=== PATIENT | male | born 1940 | race Caucasian/White ===

== ENCOUNTER 2023-10-04 01:04 | Observation (INO) | payer MEDICARE, SELFPAY ==
[2023-10-03] VITALS (7 sets, daily range): BP systolic 115–126; BP diastolic 60–81; BMI 26.1
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
[2023-10-03 16:53] LABS: % Basophils 0.4 % (0-2); % Eosinophils 3.3 % (0-6); % Immature Granulocytes 0.1 % (0-0.5); % Lymphocytes 16.7 % (20.5-51.1); % Monocytes 8.2 % (1.7-9.3); % Neutrophils 71.3 % (42.2-75.2); Absolute Eosinophils 0.2 10^3/uL (0-0.7); Absolute Lymphocytes 1.2 10^3/uL (1.2-3.4); Absolute Monocytes 0.6 10^3/uL (0.1-0.6); Absolute Neutrophils 5.1 10^3/uL (1.4-6.5); Hematocrit 32.2 % (39.0-52.0); Hemoglobin 11.3 g/dL (13.0-18.0); Mean Corp Hgb Conc. 35.1 g/dL (33.0-37.0); Mean Corpuscular Volume 94.2 fL (80.0-94.0); Mean Platelet Volume 9.8 fL (7.4-10.4); Nucleated Red Blood Cells % 0 % (-); Platelet Count 134 10^3/uL (130-400); Red Blood Cell Count 3.42 10^6/uL (4.70-6.10); White Blood Cell Count 7.2 10^3/uL (4.8-10.8)
[2023-10-03 17:07] LABS: ALT (SGPT) 29 U/L (0-50); AST (SGOT) 27 U/L (17-59); Albumin 3.8 g/dl (3.5-5.0); Alkaline Phosphatase 86 U/L (38-126); Blood Urea Nitrogen 40 mg/dl (9-20); Calcium 8.5 mg/dl (8.4-10.2); Carbon Dioxide 17 mmol/L (22-30); Chloride 113 mmol/L (98-107); Estimated Creatinine Clearance 46 ml/min; Glucose 115 mg/dl (70-99); Potassium 4.8 mmol/L (3.5-5.1); Sodium 139 mmol/L (135-145); Total Bilirubin 1.7 mg/dl (0.2-1.3); Total Protein 6.3 g/dl (6.3-8.2); eGFR 54.51
[2023-10-03 17:16] LABS: Troponin I 0.034 ng/ml
[2023-10-03] MEDS: NSS 500 IV (18:27)
[2023-10-03 20:53] LABS: Troponin I 0.046 ng/ml
[2023-10-03 23:29] LABS: Troponin I 0.052 ng/ml
[2023-10-04] VITALS (11 sets, daily range): BP systolic 101–140; BP diastolic 53–75; PULSE 70–76; BMI 25.8
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
[2023-10-04] MEDS: NSS 1000 IV ×2 (03:16→14:22)
[2023-10-04] MEDS: SYNTHROID 50 MCG PO (06:15)
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
[2023-10-04 07:12] LABS: Hematocrit 32.3 % (39.0-52.0); Hemoglobin 10.7 g/dL (13.0-18.0); Mean Corp Hgb Conc. 33.1 g/dL (33.0-37.0); Mean Corpuscular Hgb 32.7 pg (27.0-31.0); Mean Corpuscular Volume 98.8 fL (80.0-94.0); Mean Platelet Volume 10.2 fL (7.4-10.4); Platelet Count 121 10^3/uL (130-400); Red Blood Cell Count 3.27 10^6/uL (4.70-6.10); Red Cell Dist. Width 14.8 % (11.5-14.5); White Blood Cell Count 7.9 10^3/uL (4.8-10.8)
[2023-10-04 07:35] LABS: Blood Urea Nitrogen 35 mg/dl (9-20); Calcium 8.3 mg/dl (8.4-10.2); Carbon Dioxide 20 mmol/L (22-30); Chloride 112 mmol/L (98-107); Estimated Creatinine Clearance 46 ml/min; Glucose 105 mg/dl (70-99); Sodium 139 mmol/L (135-145); Troponin I 0.054 ng/ml; eGFR 54.51
[2023-10-04 07:43] LABS: Potassium 4.1 mmol/L (3.5-5.1)
[2023-10-04] MEDS: BETAPACE 80 MG PO ×2 (09:13→21:45)
[2023-10-04] MEDS: PEPCID 40 MG PO (09:13)
[2023-10-04] MEDS: QUESTRAN 4 GRAM PO ×3 (09:54→21:45)
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
--- NOTE | 2023-10-04 13:34 | PTCARENOTE ---
Troponin levels at 0613 0.054. Troponin level at 1220 0.060. Due for repeat level at 1815. Denies chest pain or other cardiac symptoms.
[2023-10-04 18:51] LABS: Troponin I 0.065 ng/ml
[2023-10-04] MEDS: VITAMIN D3 (cholecalciferol) 25 MCG PO (21:45)
[2023-10-04] MEDS: COZAAR 25 MG PO (21:45)
[2023-10-04] MEDS: ASPIR LOW (ENTERIC COATED) 81 MG PO (21:45)
[2023-10-04] MEDS: ZYLOPRIM 300 MG PO (21:45)
[2023-10-05 03:28] VITALS: BP 135/66
[2023-10-05] MEDS: SYNTHROID 50 MCG PO (05:52)
[2023-10-05 06:00] VITALS: BMI 26.5
[2023-10-05 07:20] VITALS: BP 121/61
[2023-10-05 08:09] LABS: Troponin I 0.061 ng/ml
[2023-10-05] MEDS: BETAPACE 80 MG PO (08:35)
[2023-10-05] MEDS: PEPCID 20 MG PO (08:35)
[2023-10-05] MEDS: QUESTRAN 4 GRAM PO (10:31)
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
--- NOTE | 2023-10-05 11:36 | PTCARENOTE ---
Discharge instructions reviewed with daughter and patient. Both verbalize understanding teaching and denies questions at this time. Peripheral IV and telemetry removed. Patient left via wheelchair with staff escort.
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
== END 2023-10-05 11:40 | disposition home or self-care (01) ==
LOC: 4 EAST ACU 01:04
PROVIDERS: Physician Assistant; Registered Nurse; ADMITTING PHYSICIAN Hospitalist; ATTENDING PHYSICIAN Hospitalist; CONSULT PHYSICIAN Internal Medicine Cardiovascular Disease; EMERGENCY PHYSICIAN Emergency Medicine; FAMILY PHYSICIAN Internal Medicine
DX: R07.89 Other chest pain (principal); M25.551 Pain in right hip; S80.12XA Contusion of left lower leg, initial encounter; S80.11XA Contusion of right lower leg, initial encounter; V49.49XA Driver injured in collision with other motor vehicles in traffic accident, initial encounter; Y93.89 Activity, other specified; Y92.414 Local residential or business street as the place of occurrence of the external cause; M16.11 Unilateral primary osteoarthritis, right hip; M17.11 Unilateral primary osteoarthritis, right knee; M17.12 Unilateral primary osteoarthritis, left knee; M19.071 Primary osteoarthritis, right ankle and foot; I48.0 Paroxysmal atrial fibrillation; M51.36 Other intervertebral disc degeneration, lumbar region; I25.10 Atherosclerotic heart disease of native coronary artery without angina pectoris; N18.30 Chronic kidney disease, stage 3 unspecified; K50.90 Crohn's disease, unspecified, without complications; J98.11 Atelectasis; M65.28 Calcific tendinitis, other site; M10.9 Gout, unspecified; Z95.1 Presence of aortocoronary bypass graft; Z86.79 Personal history of other diseases of the circulatory system; Z85.048 Personal history of other malignant neoplasm of rectum, rectosigmoid junction, and anus; Z92.21 Personal history of antineoplastic chemotherapy; Z92.3 Personal history of irradiation; Z85.810 Personal history of malignant neoplasm of tongue; Z95.5 Presence of coronary angioplasty implant and graft; Z90.49 Acquired absence of other specified parts of digestive tract; Z98.1 Arthrodesis status; Z88.6 Allergy status to analgesic agent; Z88.5 Allergy status to narcotic agent; Z88.8 Allergy status to other drugs, medicaments and biological substances; Z79.890 Hormone replacement therapy; Z79.82 Long term (current) use of aspirin; Z95.0 Presence of cardiac pacemaker
CPT/HCPCS: 71046; 71260; 73502; 73590; 80048; 80053; 84484; 85025; 85027; 93005; 94660; 97161; 99285; G0378; Q9967

== ENCOUNTER 2023-11-02 12:56 | Day surgery (SDC) | payer MEDICARE, OTHER, SELFPAY ==
[2023-11-02] VITALS (13 sets, daily range): BP systolic 117–137; BP diastolic 57–82; BMI 25.4
--- NOTE | 2023-11-02 17:13 | ITS.CL.CATH ---
C[facility] - Catheterization
Cardiac Catheterization
Procedure Report:
CARDIAC CATHETERIZATION REPORT
Date of Procedure: 11/02/2023
Referring: Eloi Tirado MD
Indication: Progressive angina in a patient with known severe CAD
�
HEMODYNAMIC DATA
AO: 118/53
LV: Not done
�
LEFT VENTRICULOGRAPHY: Not done
�
CORONARY ANGIOGRAPHY
Dominance: Right
Left Main: 40% distal stenosis at the bifurcation which has clear angiographic improvement compared to the prior study from 01/17/2022
LAD: The LAD has 80% mid stenosis distal to the small second diagonal branch and the distal LAD fills antegrade and via a patent ROMY graft. There is 30% stenosis distal to the ROMY graft touchdown site and this lesion also appears angiographically
less severe than on the prior study. The large first diagonal branch has trivial luminal irregularities
Circumflex: The circumflex has 70-80% proximal stenosis just past the takeoff of the tiny OM1. OM 2 fills antegrade and via a patent vein graft. There is only mild disease distal to the touchdown site of the OM 2 vein graft.
RCA: Widely patent ostial/proximal stents with 50% stenosis in the proximal RCA distal to the stented segment. This lesion has progressed mildly compared with the December 2021 study. There are widely patent stents in the mid and distal LAD. There
is a stent in the distal LAD spanning the takeoff of the PDA. PDA had a 60% ostial stenosis. The RCA continues in the AV groove to supply a tiny RPL 1, a very large RPL 2 and a small terminal RPL 3 which has 80% proximal stenosis similar to its
appearance on the prior study
Bypass grafts:
1. The left internal mammary graft to the LAD is widely patent with excellent runoff
2. The saphenous vein graft to OM 2 is patent with mild luminal irregularities with good runoff into the OM 2 target
FloWire assessment: We opted to evaluate the proximal RCA lesion with FloWire. Heparin was used for anticoagulation. A 6 [place] AR-1 guide catheter was used. A Izzui wire was passed into the mid RCA. iFR measurements were 0.96, 0.94, and 0.95.
These are consistent with nonflow-limiting disease.
�
Closure Device: 6 [place] Angio-Seal LFA
�
CONCLUSIONS
1:�Multivessel CAD as described with patent MCKINLEY-LAD and SVG-OM 2 bypass grafts
2:�Anatomy very similar to its appearance on the December 2021 study. There was mild progression of disease in the proximal RCA which was evaluated by FloWire and is nonflow limiting
3. Continue medical therapy
�
�
Copy to: Elio Tirado MD, Michael Cruz MD
�
Liam Wright MD, FACC, [facility]
[2023-11-02] MEDS: NSS 1000 IV (17:27)
[2023-11-02] MEDS: QUESTRAN 4 GRAM PO (18:14)
--- NOTE | 2023-11-02 18:34 | PTCARENOTE ---
Received patient from the laborer laboratory for post surgical recovery with planned discharge after 1999 if groin is stable. AV paced on the monitor, VSS, IVF infusing via pump LFA. Left groin dressing is dry and intact with palpable DP pulse. HOB elevated
after one hour to 30 degrees. Given questran packet PO prior to meal, eating dinner now, offers no complaints. Call frank within reach.
--- NOTE | 2023-11-02 19:07 | PTCARENOTE ---
Pt. received at change of shift. Pt. AOx3. No complaints at this time. Tele reading Vpaced HR 60BPM. BP 126/58. L groin site c/d/i. Pt. to be d/c'd at 2014 if groin site stable per MD order.
[2023-11-07 07:51] LABS: ACT-LR - POC > 397 Seconds (116-155)
== END 2023-11-02 20:30 | disposition home or self-care (01) ==
LOC: CATH 12:56
PROVIDERS: ATTENDING PHYSICIAN Internal Medicine Cardiovascular Disease; FAMILY PHYSICIAN Internal Medicine; OTHER PHYSICIAN Internal Medicine Clinical Cardiac Electrophysiology
DX: I25.110 Atherosclerotic heart disease of native coronary artery with unstable angina pectoris (principal); I12.9 Hypertensive chronic kidney disease with stage 1 through stage 4 chronic kidney disease, or unspecified chronic kidney disease; N18.30 Chronic kidney disease, stage 3 unspecified; Z95.5 Presence of coronary angioplasty implant and graft; Z95.1 Presence of aortocoronary bypass graft; I48.91 Unspecified atrial fibrillation
CPT/HCPCS: 85347; 93455; 93571; C1760; C1769; C1894; Q9967